=== PATIENT | female | born 1960 | race Caucasian/White ===

== ENCOUNTER 2020-10-02 14:11 | Inpatient (IN) | payer BC ==
[~2020-10-02] VITALS: Ht 157.5 cm; Wt 94.0 kg
--- NOTE | 2020-10-02 14:45 | NUR ---
PATIENT TO ROOM VIA WHEELCHAIR AND PHYSICIAN NOTIFIED OF PATIENT STATUS
[2020-10-02] MEDS ORDERED: ASPIRIN81 MG PO (15:21)
[2020-10-02] MEDS ORDERED: TIMOLOL 0.25%5 ML OP (15:22)
--- NOTE | 2020-10-02 15:22 | NUR ---
PT RESTING WITHOUT EVIDENCE OF ACUTE DISTRESS. SHE HAS NO COMPLAINTS AT THIS TIME
[2020-10-02 18:52] LABS: HEMATOCRIT 44.9 % (37.0-47.0); HEMOGLOBIN 14.6 g/dl (12.0-16.0); MEAN CELL VOLUME 92.6 fL CALC (80.0-100.0); MEAN CORPUSCULAR HGB 30.1 pG CALC (26.0-32.0); MEAN CORPUSCULAR HGB CONC 32.5 g/dL CAL (32.0-36.0); NEUT# 1.13 thou/uL (2.00-7.15); RED BLOOD COUNT 4.85 mill/uL (4.20-5.60)
[2020-10-02 19:08] LABS: ALKALINE PHOSPHATASE 84 u/l (38-126); ANION GAP 10 (6-22 (CALC)); BILIRUBIN, TOTAL 0.3 mg/dL (0.0-1.4); BUN 11 mg/dL (8-23); BUN/CREATININE RATIO 16 (12-20 (CALC)); CARBON DIOXIDE 28 mmol/l (22-30); CHLORIDE 104 mmol/l (95-108); CREATININE 0.7 mg/dL (0.5-1.0); GFR > 60 ML/MIN (>=60 (CALC)); GFR FOR AFR.AMER. > 60 ML/MIN (>=60 (CALC)); POTASSIUM 3.7 mmol/l (3.5-5.1); SGOT/AST 109 u/l (9-36); SODIUM 138 mmol/l (137-146); TOTAL PROTEIN 6.3 g/dL (6.3-8.2)
[2020-10-02 19:14] LABS: ALBUMIN 3.4 g/dL (3.2-5.0)
[2020-10-02 19:21] LABS: MYOGLOBIN 53 ng/mL (0 - 62)
--- NOTE | 2020-10-02 20:16 | NUR ---
TYELNOL GIVEN FOR HEADACHE 6 OUT 10
--- NOTE | 2020-10-02 22:00 | NUR ---
TOOK OVER PT CARE. PT TO BE ADMITTED.
--- NOTE | 2020-10-02 22:15 | NUR ---
REPORT GIVEN TO RAFA, RN WILL TRANSPORT WHEN NURSE RETURNS TO DEPARTMENT
--- NOTE | 2020-10-02 22:25 | NUR ---
Admission Note Report Given to: JA CRAIG Transported by: X Wheelchair Stretcher Transported with: X Nurse Transporter X Patent IV X O2 Quality Specialist Location: ICU X MS2
[2020-10-02 22:35] VITALS: BP 153/86
--- NOTE | 2020-10-02 22:35 | NUR ---
PT ARRIVED TO [facility] ROOM 284 VIA PORTABLE ACCOMPAINED BY ER STAFF. PT AMBULATED FROM PORTABLE TO BED WITH LITTLE DIFFICULTY. INTRODUCED SELF TO PT AND DICUSSED POC. PT IS A/O X3 AND ABLE TO STATE NEEDS. ASSESSMENT AND VITALS OBTAINED. RESPIRATIONS ARE EVEN AND UNLABORED ON 2L NC. HEART RHYTHM IS NORMAL. BOWEL SOUNDS ARE HYPOACTIVE, LAST REPORETD BM 10/02/2020. PT REPORTS DIARRHEA. RADIAL AND PEDAL PULSES ARE STRON. #20G IN RAC FLUSHED, SITE APPEARS HEALTHY AND PATENT.D5LR STARTED AT 200ML/HR. SKIN IS WARM AND DRY WITH NO BREAKDOWN NOTED. PT DENIES ANY PAIN AT THIS TIME. WRITTER NOTIFIED OF PT ALLERGIES, ALLERGY BAND APPLIED. PT INFORMED WRITTER THAT SHE PRESENTED TO ED FOR SOB/ NAUSEA/VOMITTING. PT DENIES ANY NAUSEA AT THIS TIME. PT ORIENTED TO ROOM AND CALL LIGHT SYSTEM. ALL SAFTEY PRECAUTIONS ARE IN PLACE WITH CALL LIGHHT IN REACH. AIR/CONTACT PRECAUTIONS ARE IN PLACE. WILL CONTINUE TO MONITOR
--- NOTE | 2020-10-03 00:30 | NUR ---
PT SLEEPING IN SEMI FOLWERS POSITION. RESPIRATIONS ARE EVEN AND UNLABORED ON 2L NC. NO SIGNS OF ANY PAIN OR DISCOMFORTS AT THIS TIME. IVF RUNNING PER ORDER, SITE APPEARS HEALTHY AND PATENT. ALL SFAETY AND ISOALTION PRECAUTIONS ARE IN PLACE WITH CALL LIGHT IN REACH. WILL CONTINUE TO MONITOR
[2020-10-03 03:50] VITALS: BP 115/63
--- NOTE | 2020-10-03 03:53 | NUR ---
PT SLEEPING IN SEMI FOWLERS POSITION. RESPIRATIONS ARE EVEN AND UNLABRORED ON 2L NC. NO SIGNS OF ANY PAIN OR DISCOMFORTS AT THIS TIME. IVF INFUSING PER ODER, SITE APPEARS HEALTHY AND PATENT. ALL SAFTEY PRECAUTIONS ARE IN PLACE WITH CALL LIGHT IN REACH. AIR/ CONTACT PRECAUTIONS IN PLACE. WILL CONTINUE TO MONITOR.
[2020-10-03 04:49] LABS: HEMOGLOBIN 13.6 g/dl (12.0-16.0); MEAN CELL VOLUME 92.9 fL CALC (80.0-100.0); MEAN CORPUSCULAR HGB 30.1 pG CALC (26.0-32.0); MEAN CORPUSCULAR HGB CONC 32.4 g/dL CAL (32.0-36.0); NEUT# 0.76 thou/uL (2.00-7.15); RED BLOOD COUNT 4.52 mill/uL (4.20-5.60)
[2020-10-03 05:25] LABS: ALBUMIN 2.9 g/dL (3.2-5.0); ALKALINE PHOSPHATASE 75 u/l (38-126); ANION GAP 8 (6-22 (CALC)); BILIRUBIN, TOTAL 0.3 mg/dL (0.0-1.4); BUN 9 mg/dL (8-23); BUN/CREATININE RATIO 15 (12-20 (CALC)); C-REACTIVE PROTEIN 2.4 mg/dL (0-0.9); CARBON DIOXIDE 29 mmol/l (22-30); CHLORIDE 105 mmol/l (95-108); CREATININE 0.6 mg/dL (0.5-1.0); GFR > 60 ML/MIN (>=60 (CALC)); GFR FOR AFR.AMER. > 60 ML/MIN (>=60 (CALC)); POTASSIUM 3.9 mmol/l (3.5-5.1); SGOT/AST 90 u/l (9-36); SODIUM 139 mmol/l (137-146); TOTAL PROTEIN 5.4 g/dL (6.3-8.2)
[2020-10-03 07:15] VITALS: BP 113/64
--- NOTE | 2020-10-03 12:00 | NUR ---
PATIENT RESTING COMFORTABLY , HAS NON PRODUTIVE COUGH WIH LITTLE SPUTUM
[2020-10-03 16:30] VITALS: BP 125/82
--- NOTE | 2020-10-03 17:10 | NUR ---
PATIENT RESTING COMFORTABLY. FAMILY CALLED WHILE PATIENT WAS ASLEEP. NO STAUS CHANGE THIS SHIFT
--- NOTE | 2020-10-03 19:00 | NUR ---
REPORT RECEIVED FROM Paolo MATHEW RN, CARE OF PT ASSUMED AT THIS TIME.
[2020-10-03 19:50] VITALS: BP 146/75
--- NOTE | 2020-10-03 21:50 | NUR ---
PT APPEARS TO BE SLEEPING COMFORTABLY, LAYING SUPINE WITH EYES CLOSED, RESPIRATIONS REGULAR AND UNLABORED. WAKES EASILY TO VERBAL STIMULI. PHYSICAL ASSESMENT COMPLETE. SCHEDULED MEDICATIONS ADMINISTERED, SEE E-MAR. PLAN OF CARE REVIEWED. PT VERBALIZES UNDERSTANDING AND DENIES QUESTIONS. CRANBERRY JUICE PROVIDED PER PTS REQUEST. PT DENIES FURTHER NEEDS AT THIS TIME. CALL BARNES WITHIN REACH, AGREES TO CALL PRN.
--- NOTE | 2020-10-04 02:00 | NUR ---
PT APPEARS TO BE SLEEPING COMFORTABLY, LAYING IN BED WITH EYES CLOSED, RESPIRATIONS REGULAR AND UNLABORED, NO APPARENT DISTRESS, CALL BARNES REMAINS WITHIN REACH.
[2020-10-04 04:55] VITALS: BP 119/73
--- NOTE | 2020-10-04 06:17 | NUR ---
PT RESTING IN BED COMFORTABLY, PHYSICAL ASSESMENT REMAINS GROSSLY UNCHANGED FROM BASELINE. HEMODYNAMICS STABLE. PT DENIES NEEDS AT THIS TIME. CALL BARNES WITHIN REACH, AGREES TO CALL PRN.
--- NOTE | 2020-10-04 08:30 | NUR ---
PATIENT IS IN FOWLERS POSITION IN BED. PATIENT IS A&O X3. PATIENT DENIES PAIN AT THIS TIME. LUNGS SOUND/CLEAR. O2 AT 2L VIA NC. IVF INFUISNG WELL. PATIENT DENIES ANY NEEDS AT THIS TIME. CALL LIGHT IN REACH.
[2020-10-04 09:16] VITALS: BP 128/70
--- NOTE | 2020-10-04 12:40 | NUR ---
PROVIDED ICE CHIPS PER PATIENT REQUEST. PATIENT DENIES ANY PAIN AT THIS TIME. PATIENT DENIES ANY OTHER NEEDS AT THIS TIME. CALL LIGHT IN REACH.
[2020-10-04 15:00] VITALS: BP 154/80
--- NOTE | 2020-10-04 15:25 | NUR ---
PATIENT IS RESITNG IN BED. PATIENT DENIES ANY NEEDS AT THIS TIME. CALL LIGHT IN REACH.
--- NOTE | 2020-10-04 19:00 | NUR ---
REPORT RECEIVED FROM Efren GILBERT RN, CARE OF PT ASSUMED AT THIS TIME.
[2020-10-04 19:20] VITALS: BP 141/79
--- NOTE | 2020-10-05 01:02 | NUR ---
PT APPEARS TO BE SLEEPING COMFORTABLY, LAYING IN BED WITH EYES CLOSED, RESPIRATIONS REGULAR AND UNLABORED, NO APPARENT DISTRESS, CALL BARNES REMAINS WITHIN REACH.
[2020-10-05 04:10] VITALS: BP 126/67
[2020-10-05 04:55] LABS: HEMATOCRIT 41.2 % (37.0-47.0); HEMOGLOBIN 13.4 g/dl (12.0-16.0); IMMATURE GRANULOCYTES 0.3 % (0.0-5.0); MEAN CELL VOLUME 91.4 fL CALC (80.0-100.0); MEAN CORPUSCULAR HGB 29.7 pG CALC (26.0-32.0); MEAN CORPUSCULAR HGB CONC 32.5 g/dL CAL (32.0-36.0); NEUT# 1.81 thou/uL (2.00-7.15); RED BLOOD COUNT 4.51 mill/uL (4.20-5.60); RED CELL DISTRI WIDTH 12.9 % (11.5-15.5)
[2020-10-05 05:17] LABS: ALBUMIN 2.9 g/dL (3.2-5.0); ALKALINE PHOSPHATASE 87 u/l (38-126); ANION GAP 8 (6-22 (CALC)); BILIRUBIN, TOTAL 0.3 mg/dL (0.0-1.4); BUN 11 mg/dL (8-23); BUN/CREATININE RATIO 18 (12-20 (CALC)); C-REACTIVE PROTEIN 2.9 mg/dL (0-0.9); CARBON DIOXIDE 30 mmol/l (22-30); CHLORIDE 106 mmol/l (95-108); CREATININE 0.6 mg/dL (0.5-1.0); GFR > 60 ML/MIN (>=60 (CALC)); GFR FOR AFR.AMER. > 60 ML/MIN (>=60 (CALC)); POTASSIUM 3.8 mmol/l (3.5-5.1); SGOT/AST 50 u/l (9-36); SODIUM 140 mmol/l (137-146); TOTAL PROTEIN 5.5 g/dL (6.3-8.2)
[2020-10-05 07:31] VITALS: BP 112/58
--- NOTE | 2020-10-05 07:31 | NUR ---
RECIEVED REPORT FROM FELICE CRABTREE. PT RESTING IN SEMI FOWLERS POSITION UPON ENTERING ROOM. INTRODUCED SELF TO PT AND DISCUSSED POC. PT IS A/O X3. ASSESSMENT AND VITALS COMPLTED. BP 112/58, HR 76, O2 92% ON 2L NC./ RESPIRATIONS ARE EVEN AND UNLABORED.NON PRODUCTIVE COUGH NOTED. HEART RHYTHM IS NORMAL. BOWEL SOUNDS ARE ACTIV EIN ALL QUADRANTS, LAST RPORETD BM 10/04/2020. RADIAL AND PEDAL PULSES ARE STRONG. #20G IN RAC RUNNING WITH IVF PER ORDER, SITE APPEARS HEALTHY AND PATENT. PT DENIES ANY PAINS OR DISCOMFORTS AT THIS TIME. PT REQUEST ICE AND EXTRA BREIFS. ALL SAFETY PRECAUTIONS ARE IN [PLACE WITH CALL LIGHT IN REACH. AIR/CONTACT PRECAUTIONS IN PLACE. WILL CONTINUE TO MONITOR
--- NOTE | 2020-10-05 08:47 | NUR ---
dr koenig at bedside dicussing poc with pt
--- NOTE | 2020-10-05 11:59 | NUR ---
PT SLEEPING IN SEMI FOWLERS POSITION. RESPIATIONS ARE EVEN AND UNLABORED ON 2L NC.IVF INFUSING PER ORDER,, SITE APPEARS HEALTHY AND PATENT. NO SIGNS OF ANY PAIN OR DISCOMFORTS.ALL SAFTEY AND ISOLATION PERCAUTIONS ARE IN PLACE WIHT CALL LIGHT IN REACH. WILL CONTINUE TO MONITOR
[2020-10-05 15:00] VITALS: BP 156/84
--- NOTE | 2020-10-05 16:39 | NUR ---
PT BACK INTO CHAIR AFTER SHOWER. REPSIRATIONS ARE EVEN AND UNLABORED ON 2L NC. PT DENIES ANY PAIN. IVF INFUSING PER ODER, SITE APPEARS HEALTHY AND PATENT. I.S TO BE PROVIDED TO PT ONCE RESTOCKED BY RESPIRATORY. PT DENIES OF ANY NEEDS AT THIS TIME. ALL SFAETY PRECAUTIONS ARE IN PLACE WIHT AIR/ CONTACT PRECAUTIONS. WILL CONTINUE TO MONITOR
--- NOTE | 2020-10-05 17:04 | NUR ---
RESPIRATORY NOTFIED OF NEED OF I.S. FISHING TACKLE REPAIRER NOTIFIED BY RESPIRATORY THAT ONE WILL BE PROVIDED IF ANY AVAILBLE. WILL CONTINUE TO MONITOR
[2020-10-05 19:30] VITALS: BP 145/81
--- NOTE | 2020-10-05 20:04 | NUR ---
PHYSICAL ASSESMENT COMPLETE. PT CURRENTLY DENIES PAIN OR DISCOMFORT. SCHEDULED MEDICATIONS AND PRN MEDICATION ADMINISTERED, SEE E-MAR. PT RECEIVING 2 LITERS OF OXYGEN AND STATING AT 94%. PT DENIES ANY NEEDS AT THIS TIME. PLAN OF CARE REVIEWED, PT DENIES QUESTIONS, VERBALIZES UNDERSTANDING. ITEMS WITHIN REACH, BED LOCKED IN LOW POSITION W/ BEDRAILS UP X2. CALL BARNES WITHIN REACH, AGREES TO CALL PRN.
[2020-10-06 04:00] VITALS: BP 147/83
--- NOTE | 2020-10-06 04:04 | NUR ---
PT LAYING IN BED WITH EYES CLOSED, APPEARS TO BE SLEEPING, APPEARS COMFORTABLE AND IN NO DISTRESS. RESPIRATIONS REGULAR AND UNLABORED. ITEMS REMAIN WITHIN REACH, CALL BARNES REMAINS WITHIN REACH. BED REMAINS LOCKED AND IN LOW POSITION WITH BEDRAILS UP X2. WILL CONTINUE TO MONITOR.
--- NOTE | 2020-10-06 09:00 | NUR ---
PT IS AWAKE, ALERT, ORIENTED X 3. LUNGS CLEAR, USES 2 LPM NC. PT WITH SHORTNESS OF BREATH WITH EXERTION. NO EVIDENCE OF DISTRESS NOTED.
--- NOTE | 2020-10-06 13:00 | NUR ---
PT WITH 6 MINUTE WALK TEST ORDERED. SHE STARTED OUT AT 90% AND DROPPED TO 84% DURING THE SLOW WALK. PHYSICIAN AWARE.
[2020-10-06 15:25] VITALS: BP 158/89
[2020-10-06 19:00] VITALS: BP 141/71
--- NOTE | 2020-10-06 20:04 | NUR ---
PHYSICAL ASSESMENT COMPLETE. PT CURRENTLY DENIES PAIN OR DISCOMFORT. SCHEDULED MEDICATIONS AND PRN MEDICATION ADMINISTERED, SEE E-MAR. PT DENIES ANY NEEDS AT THIS TIME. PT ON 2 LITERS OF OXYGEN AND SATURATION IS 98 %. PLAN OF CARE REVIEWED, PT DENIES QUESTIONS, VERBALIZES UNDERSTANDING. ITEMS WITHIN REACH, BED LOCKED IN LOW POSITION W/ BEDRAILS UP X2. CALL BARNES WITHIN REACH, AGREES TO CALL PRN.
--- NOTE | 2020-10-06 22:02 | NUR ---
PHYSICAL ASSESMENT COMPLETE. PT CURRENTLY DENIES PAIN OR DISCOMFORT. SCHEDULED MEDICATIONS AND PRN MEDICATION ADMINISTERED, SEE E-MAR. PT DENIES ANY NEEDS AT THIS TIME. PT ON 2 LITERS OF OXYGEN AND SATURATION IS 98%. PLAN OF CARE REVIEWED, PT DENIES QUESTIONS, VERBALIZES UNDERSTANDING. ITEMS WITHIN REACH, BED LOCKED IN LOW POSITION W/ BEDRAILS UP X2. CALL BARNES WITHIN REACH, AGREES TO CALL PRN.
[2020-10-07 04:00] VITALS: BP 148/81
--- NOTE | 2020-10-07 04:16 | NUR ---
PT RESTING IN BED, NO SIGNS OF DISTRESS NOTED, RESP EVEN AND UNLABORED. PT VOICES NO NEEDS OR COMPLAINTS AT THIS TIME. CALL LIGHT IN REACH, CONTINUE TO MONITOR.
--- NOTE | 2020-10-07 08:00 | NUR ---
SHIFT CHANGE REPORT, PT AWAKE ALERT AND ORIENTED, TELE MONITOR IN PLACE, O2 @ 2L VIA NC IN PLACE, REPORTS OCCASIONAL COUGH, AWAITING FINAL ORDERS TO BE D/C, WILL CONTINUE TO MONITOR.
[2020-10-07 09:38] VITALS: BP 119/62
[2020-10-07 10:01] LABS: HEMOGLOBIN 13.4 g/dl (12.0-16.0); MEAN CELL VOLUME 91.7 fL CALC (80.0-100.0); MEAN CORPUSCULAR HGB CONC 32.7 g/dL CAL (32.0-36.0); NEUT# 2.45 thou/uL (2.00-7.15); RED BLOOD COUNT 4.47 mill/uL (4.20-5.60); RED CELL DISTRI WIDTH 12.7 % (11.5-15.5)
[2020-10-07 10:44] LABS: ALKALINE PHOSPHATASE 85 u/l (38-126); ANION GAP 7 (6-22 (CALC)); BUN 15 mg/dL (8-23); BUN/CREATININE RATIO 23 (12-20 (CALC)); C-REACTIVE PROTEIN 1.6 mg/dL (0-0.9); CARBON DIOXIDE 33 mmol/l (22-30); CHLORIDE 105 mmol/l (95-108); CREATININE 0.6 mg/dL (0.5-1.0); GFR > 60 ML/MIN (>=60 (CALC)); GFR FOR AFR.AMER. > 60 ML/MIN (>=60 (CALC)); POTASSIUM 3.7 mmol/l (3.5-5.1); SGOT/AST 66 u/l (9-36); SODIUM 141 mmol/l (137-146); TOTAL PROTEIN 5.6 g/dL (6.3-8.2)
[2020-10-07 10:59] LABS: BILIRUBIN, TOTAL 0.6 mg/dL (0.0-1.4)
[2020-10-07] MEDS ORDERED: DEXAMETHASON6 MG PO (11:33)
--- NOTE | 2020-10-07 12:00 | NUR ---
EMERALD SALAZAR AND DISCUSSED D/C PLAN. CM WORKING ON AUTHORIZATION FOR HOME O2 AT THIS TIME.
--- NOTE | 2020-10-07 16:00 | NUR ---
Discharge instructions given. Patient verbalizes understanding of same. Discharged in stable condition via Wheelchair to Home with spouse. All belongings sent with pt.
--- NOTE | 2020-10-13 10:55 | NUR ---
Pneumonia post discharge follow up call completed today, 10/13. Pt states she is doing a little better each day. Continues to experience fatigue and is using oxygen, but has not experienced fever or chills. Pt. obtained discharge medication prescribed and took without difficulty. She has not made a follow up appt with a PCP as she does not have one. She intends to ask her 's PCP if he will see her. Pt expressed her gratitude for wonderful and compassionate care received from all nurses and doctors. She "had nothing but good things to say."
== END 2020-10-07 16:04 | disposition home or self-care (01) | DRG 177 ==
LOC: ED 14:11 → ED-I 21:43 → ED 21:58 → MS2 21:59
PROVIDERS: Emergency Medicine; Nurse Practitioner Family; ADMIT Internal Medicine; ATTEND Internal Medicine
DX: U07.1 COVID-19 (principal); J12.89 Other viral pneumonia; J96.00 Acute respiratory failure, unspecified whether with hypoxia or hypercapnia; H40.9 Unspecified glaucoma; Z79.82 Long term (current) use of aspirin; Z88.1 Allergy status to other antibiotic agents
CPT/HCPCS: J1650

== ENCOUNTER 2024-10-10 15:39 | Emergency (ER) | payer MEDICARE, OTHER ==
[~2024-10-10] VITALS: Ht 157.5 cm; Wt 81.0 kg
[~2024-10-10 15:39] MED LIST: ASPIRIN81 MG PO; DEXAMETHASON6 MG PO; TIMOLOL 0.25%5 ML OP
[2024-10-10] MEDS ORDERED: KETOROLAC TROMETHAMINE 30 MG/ML SDV IM ONE (15:50)
[2024-10-10 15:51] VITALS: BP 164/112
[2024-10-10] MEDS ORDERED: LISINOPRIL 10 MG/TAB PO ONE (15:55)
[2024-10-10 16:00] VITALS: BP 178/95
[2024-10-10 16:30] VITALS: BP 155/110
[2024-10-10] MEDS ORDERED: NAPROXEN500 MG PO (16:39)
[2024-10-10 17:00] VITALS: BP 167/114
[2024-10-10 17:16] VITALS: BP 167/108
[2024-10-10 17:18] VITALS: BP 167/108
== END 2024-10-10 17:20 | disposition home or self-care (01) ==
LOC: ED 15:39
PROC: 2W39X1Z Immobilization of Left Upper Extremity using Splint (ICD-10-PCS; principal; 2024-10-10)
DX: M25.522 Pain in left elbow (principal); E65 Localized adiposity